=== PATIENT | male | born 1995 | race Caucasian/White ===

== ENCOUNTER 2018-10-30 16:23 | Emergency (ER) | payer MEDICAID, OTHER ==
[~2018-10-30] VITALS: Ht 185.4 cm; Wt 71.1 kg
[2018-10-30 16:37] VITALS: BP 148/81
--- NOTE | 2018-10-30 17:04 | NUR ---
TO KAREN FROM LOBBY. KRISTAN.
[2018-10-30] MEDS ORDERED: AZITHROMYCIN 500 MG TABLET ONE (17:17)
[2018-10-30] MEDS ORDERED: CEFTRIAXONE 250 MG ONE (17:17)
[2018-10-30] MEDS ORDERED: CEFTRIAXONE 250 MG IM ONE (17:30)
[2018-10-30] MEDS ORDERED: AZITHROMYCIN 250 MG TABLET PO ONE (17:30)
== END 2018-10-30 17:50 | disposition home or self-care (01) ==
LOC: ED 17:15
DX: N34.2 Other urethritis (principal); F17.200 Nicotine dependence, unspecified, uncomplicated
CPT/HCPCS: 87491; 87591; 96372; 99283; J0696